=== PATIENT | female | born 1935 | race Caucasian/White ===

== ENCOUNTER 2018-07-21 04:04 | Emergency (ER) | payer MEDICARE, OTHER ==
[~2018-07-21] VITALS: Ht 167.6 cm; Wt 65.4 kg
[~2018-07-21 04:04] MED LIST: APIX2.5T PO; ERGO500014 PO; FENO135C2 PO; LIRA0.6P SQ; LOSA25TA96 PO; SOTA80TA73 PO; TIMO5SOL8 EACHEYE
[2018-07-21] MEDS ORDERED: normal saline 1000ml 1,000 ML IV ONE (04:35)
[2018-07-21] MEDS ORDERED: ondansetron/PF 4mg/2ml inj IV ONE (04:35)
[2018-07-21 05:14] LABS: BASOPHILS % (AUTO) 0.6 % (0-1); EOSINOPHILS # (AUTO) 0.2 X10'3 (0-0.9); EOSINOPHILS % (AUTO) 3.3 % (0-6); HEMATOCRIT 36.9 % (35.0-45.0); HEMOGLOBIN 12.7 g/dl (12.0-16.0); LYMPHOCYTES # (AUTO) 0.6 X10'3 (1.1-4.8); LYMPHOCYTES % (AUTO) 8.4 % (21-51); MEAN CORPUSCULAR HGB CONC 34.5 g/dL (33.0-36.5); MEAN CORPUSCULAR VOLUME 92.8 FL (78-98); MONOCYTES # (AUTO) 0.6 X10'3 (0-0.9); MONOCYTES % (AUTO) 8.5 % (2-12); NEUTROPHILS # (AUTO) 5.7 X10'3 (1.8-7.7); NEUTROPHILS % (AUTO) 79.2 % (42-75); PLATELET COUNT 193 X10'3 (140-440); RED BLOOD COUNT 3.98 X10'6 (4.20-5.60); RED CELL DISTRIBUTION WIDTH 13.1 % (11.5-14.5); WHITE BLOOD COUNT 7.2 X10'3 (4.5-11.0)
[2018-07-21 05:29] LABS: ALANINE AMINOTRANSFERASE 22 U/L (12-78); ALBUMIN 3.2 G/DL (3.4-5.0); ALKALINE PHOSPHATASE 57 IU/L (46-116); ANION GAP 8 (8-16); ASPARTATE AMINO TRANSFERASE 15 U/L (10-37); BILIRUBIN,TOTAL 0.6 MG/DL (0.1-1.0); BLOOD UREA NITROGEN 22 MG/DL (7-18); BUN/CREATININE RATIO 16.9 (6.6-38.0); CALCIUM 9.2 MG/DL (8.5-10.1); CHLORIDE 98 MMOL/L (99-107); GLUCOSE 190 MG/DL (70-104); POTASSIUM 4.2 MMOL/L (3.5-5.1); SODIUM 130 MMOL/L (135-145); TOTAL PROTEIN 6.4 G/DL (6.4-8.2); eGFR 39 ML/MIN
[2018-07-21 05:30] LABS: CLARITY,URINE CLEAR (Clear); COLOR,URINE YELLOW (Yellow); GLUCOSE, URINE NEGATIVE (Neg); KETONES,URINE TRACE mg/dl (Neg); LEUKOCYTE ESTERASE ,URINE SMALL (Neg); NITRITES, URINE NEGATIVE (Neg); OCCULT BLOOD,URINE NEGATIVE (Neg); PROTEIN,URINE NEGATIVE (Neg); UROBILINOGEN,URINE 0.2 E.U/dL (0.2-1.0)
[2018-07-21 05:32] LABS: LIPASE 57 U/L (73-393); TROPONIN I < 0.04 NG/ML (0.0-0.05)
[2018-07-21 05:51] LABS: UA COLLECTION TYPE CLN CATCH MIDSTREAM
[2018-07-21 05:57] LABS: BACTERIA,URINE 1+ /HPF (Neg); RBC,URINE NONE SEEN /HPF (0-2); SQUAMOUS EPITHELIAL CELL,UR FEW /LPF (FEW); TRANSITIONAL EPI CELLS,URINE FEW /HPF
[2018-07-21 05:58] LABS: HYALINE CASTS 0-3 /LPF (NEGATIVE)
[2018-07-21] MEDS ORDERED: ONDA8TAB6 PO (06:07)
[2018-07-21 06:23] VITALS: BP 137/57
== END 2018-07-21 06:26 | disposition home or self-care (01) ==
LOC: ER 04:05
DX: R53.1 Weakness (principal); K21.9 Gastro-esophageal reflux disease without esophagitis; E11.9 Type 2 diabetes mellitus without complications; Z86.718 Personal history of other venous thrombosis and embolism; Z90.49 Acquired absence of other specified parts of digestive tract; Z98.890 Other specified postprocedural states; Z95.0 Presence of cardiac pacemaker; Z88.1 Allergy status to other antibiotic agents; Z79.899 Other long term (current) drug therapy
CPT/HCPCS: 36415; 80053; 81001; 82948; 83605; 83690; 84484; 85025; 87088; 96374; 99284; J2405; J7030; 96361

== ENCOUNTER 2018-08-12 13:08 | Inpatient (IN) | payer MEDICARE, OTHER ==
[~2018-08-12] VITALS: Ht 167.6 cm; Wt 72.7 kg
[2018-08-12] VITALS (8 sets, daily range): BP systolic 122–153; BP diastolic 49–62
[~2018-08-12 13:08] MED LIST changes: +AREDS EYE VITAMINS PO; +CHOL100046 PO; -ERGO500014 PO; -FENO135C2 PO; -LIRA0.6P SQ; +LIRA0.6P2 SUBCUT; -LOSA25TA96 PO; +LOSA50TA64 PO; +MULT1TAB74 PO; +PANT-47 PO; +TIMO5SOL6 EACHEYE; -TIMO5SOL8 EACHEYE
[2018-08-12 14:34] LABS: ALANINE AMINOTRANSFERASE 34 U/L (12-78); ALBUMIN 2.3 G/DL (3.4-5.0); ALBUMIN/GLOBULIN RATIO 0.9 (1.1-1.5); ALKALINE PHOSPHATASE 40 IU/L (46-116); ANION GAP 9 (8-16); ASPARTATE AMINO TRANSFERASE 32 U/L (10-37); BASOPHILS # (AUTO) 0.1 X10'3 (0-0.2); BASOPHILS % (AUTO) 0.8 % (0-1); BILIRUBIN,TOTAL 0.5 MG/DL (0.1-1.0); BLOOD UREA NITROGEN 19 MG/DL (7-18); BUN/CREATININE RATIO 15.1 (6.6-38.0); CALCIUM 8.4 MG/DL (8.5-10.1); CHLORIDE 109 MMOL/L (99-107); CREATININE 1.26 MG/DL (0.40-0.90); EOSINOPHILS # (AUTO) 0.3 X10'3 (0-0.9); EOSINOPHILS % (AUTO) 3.6 % (0-6); GLUCOSE 165 MG/DL (70-104); LYMPHOCYTES # (AUTO) 0.8 X10'3 (1.1-4.8); MEAN CORPUSCULAR HEMOGLOBIN 31.9 PG (27.0-31.0); MEAN CORPUSCULAR HGB CONC 33.7 g/dL (33.0-36.5); MEAN CORPUSCULAR VOLUME 94.5 FL (78-98); MEAN PLATELET VOLUME 8.2 FL (7.4-10.4); MONOCYTES # (AUTO) 0.6 X10'3 (0-0.9); MONOCYTES % (AUTO) 7.8 % (2-12); NEUTROPHILS # (AUTO) 5.8 X10'3 (1.8-7.7); NEUTROPHILS % (AUTO) 76.8 % (42-75); PLATELET COUNT 224 X10'3 (140-440); RED BLOOD COUNT 2.16 X10'6 (4.20-5.60); RED CELL DISTRIBUTION WIDTH 13.6 % (11.5-14.5); SODIUM 138 MMOL/L (135-145); TOTAL CARBON DIOXIDE 20.4 MMOL/L (24-32); TOTAL PROTEIN 4.8 G/DL (6.4-8.2); WHITE BLOOD COUNT 7.6 X10'3 (4.5-11.0); eGFR 41 ML/MIN
[2018-08-12 14:43] LABS: HEMOGLOBIN 6.9 g/dl (12.0-16.0)
[2018-08-12 14:44] LABS: HEMATOCRIT 20.5 % (35.0-45.0)
[2018-08-12] MEDS ORDERED: pantoprazole IV 80 MG in normal saline 100ml IV soln 100 ML IV ONE ×4 (14:50)
[2018-08-12] MEDS ORDERED: ESOMEPRAZOLE 40 MG VIAL IV ONE (15:01)
[2018-08-12] MEDS: pantoprazole 40MG/NS 100ML BAG 100 ML IV SCH ×2 (15:31→20:38)
[2018-08-12 15:35] LABS: PARTIAL THROMBOPLASTIN TIME 24 SECONDS (22-32)
[2018-08-12] MEDS ORDERED: acetaminophen 325mg tablet PO PRN (15:45)
[2018-08-12] MEDS ORDERED: ondansetron/PF 4mg/2ml inj IV PRN (15:45)
[2018-08-12] MEDS ORDERED: morphine 2 MG/ML inj. syringe IV PRN ×2 (15:45)
[2018-08-12] MEDS ORDERED: magnesium hydroxide 30ml (MOM) UD suspension PO PRN (15:45)
[2018-08-12] MEDS ORDERED: mag hydrox/Alum hydrox/simeth 30ml oral suspension PO PRN (15:45)
--- NOTE | 2018-08-12 18:30 | NUR ---
Patient in room [facility]. I have received report from BARBRA RAMIRES and had the opportunity to ask questions and assume patient care.
[2018-08-12] MEDS: normal saline 1000ml 1,000 ML IV SCH ×2 (19:00→22:20)
[2018-08-12] MEDS: sotalol 80mg tablet PO SCH (20:32)
[2018-08-13] VITALS (17 sets, daily range): BP systolic 109–168; BP diastolic 33–77
[2018-08-13] MEDS: pantoprazole 40MG/NS 100ML BAG 100 ML IV SCH ×5 (01:44→21:39)
[2018-08-13 05:15] LABS: BASOPHILS % (AUTO) 0.7 % (0-1); EOSINOPHILS # (AUTO) 0.2 X10'3 (0-0.9); EOSINOPHILS % (AUTO) 3.4 % (0-6); HEMATOCRIT 23.6 % (35.0-45.0); HEMOGLOBIN 8.4 g/dl (12.0-16.0); LYMPHOCYTES % (AUTO) 16.7 % (21-51); MEAN CORPUSCULAR HEMOGLOBIN 31.4 PG (27.0-31.0); MEAN CORPUSCULAR HGB CONC 35.4 g/dL (33.0-36.5); MEAN CORPUSCULAR VOLUME 88.7 FL (78-98); MEAN PLATELET VOLUME 7.6 FL (7.4-10.4); MONOCYTES # (AUTO) 0.6 X10'3 (0-0.9); MONOCYTES % (AUTO) 10.2 % (2-12); NEUTROPHILS # (AUTO) 4.2 X10'3 (1.8-7.7); PLATELET COUNT 186 X10'3 (140-440); RED BLOOD COUNT 2.66 X10'6 (4.20-5.60); WHITE BLOOD COUNT 6.1 X10'3 (4.5-11.0)
[2018-08-13 05:23] LABS: ALBUMIN 2.1 G/DL (3.4-5.0); ANION GAP 7 (8-16); BLOOD UREA NITROGEN 25 MG/DL (7-18); BUN/CREATININE RATIO 26.6 (6.6-38.0); CHLORIDE 110 MMOL/L (99-107); CREATININE 0.94 MG/DL (0.40-0.90); GLUCOSE 158 MG/DL (70-104); SODIUM 138 MMOL/L (135-145); TOTAL CARBON DIOXIDE 21.5 MMOL/L (24-32); eGFR 57 ML/MIN
--- NOTE | 2018-08-13 06:30 | NUR ---
Patient in room [facility]. I have received report from KEYLA Hussein and had the opportunity to ask questions and assume patient care.
--- NOTE | 2018-08-13 06:30 | NUR ---
Problems reprioritized. Patient report given, questions answered & plan of care reviewed with JERED RAMIRES.
[2018-08-13] MEDS ORDERED: fentaNYL/PF 50MCG/1 ML 2ML syringe ONE (08:50)
[2018-08-13] MEDS ORDERED: MIDAZolam 5mg/5ml vial ONE (08:50)
[2018-08-13] MEDS ORDERED: LIDOcaine Viscous 15ml cup ONE (08:50)
[2018-08-13] MEDS: timolol XE 0.5% ophth GEL forming sol 5ml EACHEYE SCH (11:14)
[2018-08-13] MEDS: sotalol 80mg tablet PO SCH ×2 (11:14→20:23)
[2018-08-13] MEDS: losartan 50mg tablet PO SCH (11:15)
[2018-08-13] MEDS: multivitamins, therapeutics tablet PO SCH (11:15)
[2018-08-13] MEDS: vitamin D (cholecalciferol) 1,000 unit tablet PO SCH (11:16)
--- NOTE | 2018-08-13 15:49 | NUR ---
DM Consult: A1C <7 and not appropriate for DM ed at this time. Addendum: 08/13/18 at [address] Amended: Links added.
[2018-08-13 17:07] LABS: HEMATOCRIT 25.5 % (35.0-45.0); HEMOGLOBIN 8.8 g/dl (12.0-16.0); MEAN CORPUSCULAR HGB CONC 34.5 g/dL (33.0-36.5); MEAN CORPUSCULAR VOLUME 89.8 FL (78-98); MEAN PLATELET VOLUME 7.7 FL (7.4-10.4); PLATELET COUNT 202 X10'3 (140-440); RED BLOOD COUNT 2.84 X10'6 (4.20-5.60); RED CELL DISTRIBUTION WIDTH 15.1 % (11.5-14.5); WHITE BLOOD COUNT 6.8 X10'3 (4.5-11.0)
--- NOTE | 2018-08-13 18:32 | NUR ---
Problems reprioritized. Patient report given, questions answered & plan of care reviewed with KEYLA Payan and KEYLA Sanchez.
--- NOTE | 2018-08-13 18:32 | NUR ---
Patient in room [facility]. I have received report from KEYLA Sher and had the opportunity to ask questions and assume patient care.
[2018-08-14 01:10] LABS: ALBUMIN 2.2 G/DL (3.4-5.0); ANION GAP 6 (8-16); BLOOD UREA NITROGEN 21 MG/DL (7-18); BUN/CREATININE RATIO 22.1 (6.6-38.0); CALCIUM 8.2 MG/DL (8.5-10.1); CHLORIDE 111 MMOL/L (99-107); CREATININE 0.95 MG/DL (0.40-0.90); GLUCOSE 111 MG/DL (70-104); POTASSIUM 3.7 MMOL/L (3.5-5.1); SODIUM 140 MMOL/L (135-145); TOTAL CARBON DIOXIDE 23.5 MMOL/L (24-32); eGFR 56 ML/MIN
[2018-08-14 01:21] LABS: BASOPHILS % (AUTO) 0.6 % (0-1); EOSINOPHILS # (AUTO) 0.3 X10'3 (0-0.9); EOSINOPHILS % (AUTO) 3.9 % (0-6); HEMATOCRIT 24.5 % (35.0-45.0); HEMOGLOBIN 8.3 g/dl (12.0-16.0); LYMPHOCYTES # (AUTO) 1.3 X10'3 (1.1-4.8); LYMPHOCYTES % (AUTO) 18.7 % (21-51); MEAN CORPUSCULAR HEMOGLOBIN 30.8 PG (27.0-31.0); MEAN CORPUSCULAR VOLUME 90.7 FL (78-98); MEAN PLATELET VOLUME 7.7 FL (7.4-10.4); MONOCYTES # (AUTO) 0.7 X10'3 (0-0.9); MONOCYTES % (AUTO) 9.9 % (2-12); NEUTROPHILS # (AUTO) 4.6 X10'3 (1.8-7.7); NEUTROPHILS % (AUTO) 66.9 % (42-75); PLATELET COUNT 192 X10'3 (140-440); RED CELL DISTRIBUTION WIDTH 14.9 % (11.5-14.5); WHITE BLOOD COUNT 6.9 X10'3 (4.5-11.0)
[2018-08-14] MEDS: pantoprazole 40MG/NS 100ML BAG 100 ML IV SCH ×2 (02:52→08:34)
--- NOTE | 2018-08-14 06:42 | NUR ---
Problems reprioritized. Patient report given, questions answered & plan of care reviewed with KEYLA Epstein.
--- NOTE | 2018-08-14 06:46 | NUR ---
Patient in room [facility]. I have received report from Schuyler RAMIRES and Laura RAMIRES and had the opportunity to ask questions and assume patient care.
--- NOTE | 2018-08-14 07:00 | NUR ---
Patient in room [facility]. I have received report from Pat RN and had the opportunity to ask questions and assume patient care.
[2018-08-14 07:31] VITALS: BP 167/54
[2018-08-14] MEDS: multivitamins, therapeutics tablet PO SCH (08:00)
[2018-08-14] MEDS: vitamin D (cholecalciferol) 1,000 unit tablet PO SCH (08:00)
[2018-08-14] MEDS: sotalol 80mg tablet PO SCH ×2 (08:36→20:43)
[2018-08-14] MEDS: timolol XE 0.5% ophth GEL forming sol 5ml EACHEYE SCH (08:36)
[2018-08-14] MEDS: losartan 50mg tablet PO SCH (08:36)
[2018-08-14 08:53] LABS: HEMATOCRIT 25.2 % (35.0-45.0); HEMOGLOBIN 8.7 g/dl (12.0-16.0); MEAN CORPUSCULAR HEMOGLOBIN 31.2 PG (27.0-31.0); MEAN CORPUSCULAR HGB CONC 34.3 g/dL (33.0-36.5); MEAN CORPUSCULAR VOLUME 90.8 FL (78-98); MEAN PLATELET VOLUME 7.8 FL (7.4-10.4); PLATELET COUNT 205 X10'3 (140-440); RED BLOOD COUNT 2.78 X10'6 (4.20-5.60); RED CELL DISTRIBUTION WIDTH 15.1 % (11.5-14.5); WHITE BLOOD COUNT 7.6 X10'3 (4.5-11.0)
[2018-08-14 08:59] VITALS: BP_SYST 148; BP_SYST 161; BP_DIAS 58; BP_DIAS 59
--- NOTE | 2018-08-14 09:00 | NUR ---
Pt refusing to have field start IV changed. IV patent and flushes well.
[2018-08-14 11:47] VITALS: BP 161/58
--- NOTE | 2018-08-14 18:35 | NUR ---
Patient in room [facility]. I have received report from Tete RAMIRES and had the opportunity to ask questions and assume patient care.
--- NOTE | 2018-08-14 18:47 | NUR ---
Problems reprioritized. Patient report given, questions answered & plan of care reviewed with Jerrica RAMIRES.
[2018-08-14 19:00] VITALS: BP 145/50
[2018-08-14 20:00] VITALS: BP_SYST 123; BP_SYST 126; BP_SYST 129; BP_DIAS 34; BP_DIAS 41; BP_DIAS 48
[2018-08-14] MEDS: pantoprazole 40mg Tablet.DR PO SCH (20:43)
[2018-08-15] VITALS: BP 130/49
--- NOTE | 2018-08-15 05:31 | NUR ---
Patient refused to have her field start PIV dc/d, and a new to be started, stating "I am going home tomorrow". IV flushes well, No s/sx of infection.
[2018-08-15 06:11] LABS: BASOPHILS # (AUTO) 0.1 X10'3 (0-0.2); BASOPHILS % (AUTO) 0.8 % (0-1); EOSINOPHILS # (AUTO) 0.3 X10'3 (0-0.9); HEMATOCRIT 23.3 % (35.0-45.0); LYMPHOCYTES # (AUTO) 1.3 X10'3 (1.1-4.8); LYMPHOCYTES % (AUTO) 18.7 % (21-51); MEAN CORPUSCULAR HGB CONC 34.4 g/dL (33.0-36.5); MEAN CORPUSCULAR VOLUME 90.1 FL (78-98); MEAN PLATELET VOLUME 7.5 FL (7.4-10.4); MONOCYTES # (AUTO) 0.7 X10'3 (0-0.9); MONOCYTES % (AUTO) 10.2 % (2-12); NEUTROPHILS # (AUTO) 4.5 X10'3 (1.8-7.7); NEUTROPHILS % (AUTO) 66.3 % (42-75); PLATELET COUNT 213 X10'3 (140-440); RED BLOOD COUNT 2.59 X10'6 (4.20-5.60); RED CELL DISTRIBUTION WIDTH 15.2 % (11.5-14.5); WHITE BLOOD COUNT 6.8 X10'3 (4.5-11.0)
[2018-08-15 06:21] LABS: ALBUMIN 2.3 G/DL (3.4-5.0); ANION GAP 8 (8-16); BLOOD UREA NITROGEN 16 MG/DL (7-18); BUN/CREATININE RATIO 15.2 (6.6-38.0); CALCIUM 8.6 MG/DL (8.5-10.1); CHLORIDE 108 MMOL/L (99-107); CREATININE 1.05 MG/DL (0.40-0.90); GLUCOSE 119 MG/DL (70-104); POTASSIUM 3.5 MMOL/L (3.5-5.1); SODIUM 140 MMOL/L (135-145); TOTAL CARBON DIOXIDE 24.5 MMOL/L (24-32); eGFR 50 ML/MIN
--- NOTE | 2018-08-15 06:40 | NUR ---
Problems reprioritized. Patient report given, questions answered & plan of care reviewed with Zaria RAMIRES.
[2018-08-15 07:04] VITALS: BP 139/51
[2018-08-15] MEDS: losartan 50mg tablet PO SCH (08:47)
[2018-08-15] MEDS: pantoprazole 40mg Tablet.DR PO SCH (08:47)
[2018-08-15] MEDS: multivitamins, therapeutics tablet PO SCH (08:47)
[2018-08-15] MEDS: vitamin D (cholecalciferol) 1,000 unit tablet PO SCH (08:47)
[2018-08-15] MEDS: sotalol 80mg tablet PO SCH (08:48)
[2018-08-15] MEDS: timolol XE 0.5% ophth GEL forming sol 5ml EACHEYE SCH (08:49)
[2018-08-15 11:00] VITALS: BP 135/55
[2018-08-17] MEDS ORDERED: PANT40TA4 PO (13:22)
== END 2018-08-15 12:10 | disposition home or self-care (01) | DRG 377 ==
LOC: ER 13:08 → SUR 3N 16:57 → CMPBEDREQ 08-14 19:59
PROVIDERS: ADMIT Internal Medicine; ATTEND Internal Medicine
PROC: 30233N1 Transfusion of Nonautologous Red Blood Cells into Peripheral Vein, Percutaneous Approach (ICD-10-PCS; 2018-08-12)
PROC: 0DJ08ZZ Inspection of Upper Intestinal Tract, Via Natural or Artificial Opening Endoscopic (ICD-10-PCS; principal; 2018-08-13)
DX: K25.4 Chronic or unspecified gastric ulcer with hemorrhage (principal); E43 Unspecified severe protein-calorie malnutrition; D62 Acute posthemorrhagic anemia; N17.9 Acute kidney failure, unspecified; I25.10 Atherosclerotic heart disease of native coronary artery without angina pectoris; I48.0 Paroxysmal atrial fibrillation; I49.5 Sick sinus syndrome; K44.9 Diaphragmatic hernia without obstruction or gangrene; K21.0 Gastro-esophageal reflux disease with esophagitis; E11.51 Type 2 diabetes mellitus with diabetic peripheral angiopathy without gangrene; Z88.1 Allergy status to other antibiotic agents; Z88.2 Allergy status to sulfonamides; Z88.8 Allergy status to other drugs, medicaments and biological substances; Z79.899 Other long term (current) drug therapy; Z68.25 Body mass index [BMI] 25.0-25.9, adult; Z95.1 Presence of aortocoronary bypass graft; Z90.49 Acquired absence of other specified parts of digestive tract; Z86.718 Personal history of other venous thrombosis and embolism; Z79.01 Long term (current) use of anticoagulants; Z95.0 Presence of cardiac pacemaker
CPT/HCPCS: 36415; 36430; 80048; 80053; 82948; 85025; 85027; 85610; 85730; 86885; 86900; 86901; 86920; 87070; 93005; 96374; 99152; 99291; A4620; C9113; G0378; J2250; J3010; J7030; P9016

== ENCOUNTER 2022-05-31 11:28 | Day surgery (SDC) | payer MEDICARE ==
[2022-05-28 11:39] LABS: BASOPHILS % (AUTO) 0.7 % (0-1); EOSINOPHILS # (AUTO) 0.3 X10'3 (0-0.9); EOSINOPHILS % (AUTO) 3.7 % (0-6); HEMATOCRIT 38.7 % (35.0-45.0); LYMPHOCYTES # (AUTO) 0.8 X10'3 (1.1-4.8); LYMPHOCYTES % (AUTO) 12.2 % (21-51); MEAN CORPUSCULAR HEMOGLOBIN 31.9 PG (27.0-31.0); MEAN CORPUSCULAR HGB CONC 33.7 g/dL (33.0-36.5); MEAN CORPUSCULAR VOLUME 94.6 FL (78-98); MEAN PLATELET VOLUME 7.6 FL (7.4-10.4); MONOCYTES # (AUTO) 0.6 X10'3 (0-0.9); MONOCYTES % (AUTO) 8.5 % (2-12); NEUTROPHILS # (AUTO) 5.2 X10'3 (1.8-7.7); NEUTROPHILS % (AUTO) 74.9 % (42-75); PLATELET COUNT 185 X10'3 (140-440); RED BLOOD COUNT 4.08 X10'6 (4.20-5.60)
[2022-05-28 11:53] LABS: APTT 30 SECONDS (22-32)
[2022-05-28 11:56] LABS: ALBUMIN 3.7 G/DL (3.4-5.0); ANION GAP 6 (8-16); BLOOD UREA NITROGEN 20 MG/DL (7-18); CALCIUM 10.1 MG/DL (8.5-10.1); CHLORIDE 104 MMOL/L (99-107); CHOL/HDL RATIO 3.4 (0.00-4.99); CHOLESTEROL 200 MG/DL (0-200); GLUCOSE 150 MG/DL (70-104); HDL CHOLESTEROL 59 MG/DL (35-60); LDL CHOLESTEROL 114 MG/DL (50-100); POTASSIUM 4.9 MMOL/L (3.5-5.1); SODIUM 139 MMOL/L (135-145); TOTAL CARBON DIOXIDE 29.1 MMOL/L (24-32); TRIGLYCERIDES 133 MG/DL (20-135); eGFR 68 ML/MIN
[~2022-05-31] VITALS: Ht 165.1 cm; Wt 56.6 kg
[2022-05-31] VITALS (10 sets, daily range): BP systolic 118–180; BP diastolic 51–88
[~2022-05-31 11:28] MED LIST changes: -APIX2.5T PO; +ASCO100T12 PO; +CYAN250010 PO; -LIRA0.6P2 SUBCUT; +METF-1203 PO; +METO-395 PO; -MULT1TAB74 PO; -PANT-47 PO; -SOTA80TA73 PO; +TIMO5DRO4 EACHEYE; -TIMO5SOL6 EACHEYE; +VITA-268 PO; +[UNRECOGNIZED DRUG - OTHER] PO
[2022-05-31] MEDS ORDERED: SPIR25TA5 PO (12:10)
[2022-05-31] MEDS ORDERED: NITR0.4T48 SL (12:10)
[2022-05-31] MEDS: LORazepam 0.5 MG tablet PO PRN (12:53)
[2022-05-31] MEDS: diphenhydrAMINE 25mg capsule PO PRN (12:53)
[2022-05-31] MEDS: normal saline 1,000 ML IV SCH (12:54)
[2022-05-31] MEDS ORDERED: nitroGLYCERIN-Tridil 50MG/D5W 250 ML IV ONE (13:36)
[2022-05-31] MEDS ORDERED: verapamil 2.5 mg/ml inj IV ONE (13:37)
[2022-05-31] MEDS ORDERED: LIDOcaine 1% (10mg/ml) 2ml vial ONE (13:37)
[2022-05-31] MEDS ORDERED: iohexol 350MG/ML 100ml bottle IV ONE ×2 (13:37→14:20)
[2022-05-31] MEDS ORDERED: heparin 1,000unit/ml 10ml vial 10 ML ONE (13:37)
[2022-05-31] MEDS ORDERED: LIDOcaine 1% 30ml preserv. free vial ONE (14:03)
[2022-05-31] MEDS ORDERED: iohexol 350 MG/ML 50ML vial IV ONE (14:25)
[2022-05-31] MEDS ORDERED: hydrALAZINE 20mg/ml inj. IV ONE (14:35)
[2022-05-31 15:04] LABS: ISTAT HGB ART 11.9 g/dl (12.0-16.0); ISTAT Hct ART 35 %PCV (35-45); ISTAT O2 SATURATION ARTERIAL 97 % (95-98); ISTAT SOURCE ART
[2022-05-31] MEDS ORDERED: HYDROcodone/acetaminophen 10/325mg tab PO PRN (15:35)
[2022-05-31] MEDS ORDERED: HYDROcodone/acetaminophen 5mg/325mg tablet PO PRN (15:35)
[2022-05-31] MEDS ORDERED: nitroGLYCERIN 0.4mg SUBLingual tab SL PRN (15:35)
[2022-05-31 15:59] LABS: ISTAT Hct MIX 37 %PCV (35-45); ISTAT O2 SATURATION MIX VENOUS 63 % (60-80); ISTAT SOURCE VEN
== END 2022-05-31 20:50 | disposition home or self-care (01) ==
LOC: SSTAY O 11:28
PROVIDERS: ATTEND Student in an Organized Health Care Education/Training Program
DX: I25.10 Atherosclerotic heart disease of native coronary artery without angina pectoris (principal); I25.82 Chronic total occlusion of coronary artery; E78.5 Hyperlipidemia, unspecified; I36.1 Nonrheumatic tricuspid (valve) insufficiency; Z79.01 Long term (current) use of anticoagulants; E11.22 Type 2 diabetes mellitus with diabetic chronic kidney disease; N18.9 Chronic kidney disease, unspecified; I12.9 Hypertensive chronic kidney disease with stage 1 through stage 4 chronic kidney disease, or unspecified chronic kidney disease; I48.91 Unspecified atrial fibrillation; I13.0 Hypertensive heart and chronic kidney disease with heart failure and stage 1 through stage 4 chronic kidney disease, or unspecified chronic kidney disease; M19.90 Unspecified osteoarthritis, unspecified site; Z79.899 Other long term (current) drug therapy
CPT/HCPCS: 36415; 80048; 80061; 82803; 82948; 85014; 85025; 85610; 85730; 93005; 93457; 93567; C1894; J0360; J1644; J3490; J7030; Q0163; Q9967; A6258; C1751

== ENCOUNTER 2023-01-09 11:14 | Emergency (ER) | payer MEDICARE ==
[~2023-01-09 11:14] MED LIST changes: -ASCO100T12 PO; -CYAN250010 PO; +NITR0.4T48 SL; +SPIR25TA5 PO; -TIMO5DRO4 EACHEYE
[2023-01-09 12:35] VITALS: TEMP 97.9
[2023-01-09] MEDS ORDERED: normal saline 1000ML IV soln IVB ONE (13:00)
[2023-01-09 13:14] LABS: BASOPHILS % (AUTO) 0.3 % (0-1); EOSINOPHILS # (AUTO) 0.1 X10'3 (0-0.9); EOSINOPHILS % (AUTO) 0.5 % (0-6); HEMOGLOBIN 12.2 g/dl (12.0-16.0); LYMPHOCYTES # (AUTO) 0.7 X10'3 (1.1-4.8); LYMPHOCYTES % (AUTO) 5.1 % (21-51); MEAN CORPUSCULAR HEMOGLOBIN 29.7 PG (27.0-31.0); MEAN CORPUSCULAR HGB CONC 32.2 g/dL (33.0-36.5); MEAN CORPUSCULAR VOLUME 92.4 FL (78-98); MEAN PLATELET VOLUME 7.7 FL (7.4-10.4); MONOCYTES # (AUTO) 1.4 X10'3 (0-0.9); MONOCYTES % (AUTO) 10.2 % (2-12); NEUTROPHILS # (AUTO) 11.8 X10'3 (1.8-7.7); NEUTROPHILS % (AUTO) 83.9 % (42-75); PLATELET COUNT 283 X10'3 (140-440); RED BLOOD COUNT 4.11 X10'6 (4.20-5.60); RED CELL DISTRIBUTION WIDTH 14.5 % (11.5-14.5); WHITE BLOOD COUNT 14.1 X10'3 (4.5-11.0)
[2023-01-09 13:28] LABS: ALANINE AMINOTRANSFERASE 13 U/L (12-78); ALBUMIN 3.4 G/DL (3.4-5.0); ALBUMIN/GLOBULIN RATIO 1.1 (1.1-1.5); ALKALINE PHOSPHATASE 51 IU/L (46-116); AMYLASE 10 U/L (25-115); ANION GAP 16 (8-16); ASPARTATE AMINO TRANSFERASE 10 U/L (10-37); BILIRUBIN,TOTAL 0.8 MG/DL (0.1-1.0); BLOOD UREA NITROGEN 18 MG/DL (7-18); BUN/CREATININE RATIO 17.8 (10.0-20.0); CALCIUM 9.9 MG/DL (8.5-10.1); CHLORIDE 103 MMOL/L (99-107); CREATININE 1.01 MG/DL (0.40-0.90); GLUCOSE 106 MG/DL (70-104); LIPASE 10 U/L (16-77); POTASSIUM 3.5 MMOL/L (3.5-5.1); SODIUM 139 MMOL/L (135-145); TOTAL PROTEIN 6.5 G/DL (6.4-8.2); eGFR 52 ML/MIN
[2023-01-09] MEDS ORDERED: iohexol 300mg/ml 100ml inj. ONE (13:57)
[2023-01-09 15:18] LABS: BILIRUBIN,URINE NEGATIVE (Neg); CLARITY,URINE CLOUDY (Clear); COLOR,URINE YELLOW (Yellow); GLUCOSE, URINE NEGATIVE (Neg); KETONES,URINE 40 mg/dl (Neg); LEUKOCYTE ESTERASE ,URINE SMALL (Neg); NITRITES, URINE POSITIVE (Neg); OCCULT BLOOD,URINE TRACE-INTACT (Neg); PROTEIN,URINE 30 mg/dl (Neg); UROBILINOGEN,URINE 0.2 E.U/dL (0.2-1.0)
[2023-01-09 15:22] LABS: UA COLLECTION TYPE VOIDED
[2023-01-09 15:24] LABS: BACTERIA,URINE 3+ /HPF (Neg); MUCUS STRANDS FEW /LPF (Neg); SQUAMOUS EPITHELIAL CELL,UR FEW /LPF (FEW); WBC CLUMPS,URINE FEW /HPF (NEGATIVE); WBC,URINE TNTC /HPF (0-4)
[2023-01-09 15:25] LABS: RBC,URINE 0-2 /HPF (0-2)
[2023-01-09] MEDS ORDERED: PRED20TA PO (15:44)
[2023-01-09] MEDS ORDERED: CIPR-259 PO (15:44)
[2023-01-09 16:06] VITALS: BP 151/58; PULSE 60; RESP 18; O2SAT 99
== END 2023-01-09 16:08 | disposition home or self-care (01) ==
LOC: ER 11:14
DX: K52.89 Other specified noninfective gastroenteritis and colitis (principal); I11.0 Hypertensive heart disease with heart failure; E11.9 Type 2 diabetes mellitus without complications; K21.9 Gastro-esophageal reflux disease without esophagitis; Z90.49 Acquired absence of other specified parts of digestive tract; Z88.2 Allergy status to sulfonamides; Z88.8 Allergy status to other drugs, medicaments and biological substances; Z79.899 Other long term (current) drug therapy; Z88.1 Allergy status to other antibiotic agents
CPT/HCPCS: 36415; 74177; 80053; 81001; 82150; 83690; 84145; 85025; 87077; 87088; 87186; 99285; J3490; J7030; Q9967